=== PATIENT | female | born 1960 | race Caucasian/White ===

== ENCOUNTER 2016-02-28 03:17 | Emergency (ER) | payer BC ==
[~2016-02-28] VITALS: Ht 157.5 cm; Wt 77.2 kg
[~2016-02-28 03:17] MED LIST: ATEN-173 PO; CLX20 PO; FISH1CAP3 PO; NPR/250 PO
[2016-02-28 03:24] VITALS: TEMP 36.9; Ht 157.5 cm; Wt 77.2 kg
[2016-02-28] MEDS ORDERED: FAMOTIDINE IV INJ 20 MG in DEXTROSE 5% 100ML 100 ML IV STA (03:42)
[2016-02-28] MEDS ORDERED: DEXAMETHASONE SOD INJ 10 MG/ML VIAL IV ONE (03:45)
[2016-02-28] MEDS ORDERED: FAMOTIDINE 20MG/102 ML D5W ONE (03:56)
[2016-02-28 04:04] VITALS: O2SAT 98
[2016-02-28] MEDS ORDERED: EPINEPHRINE ADULT AUTO-INJECT 0.3 MG SYR IM ONE (04:30)
[2016-02-28] MEDS ORDERED: LISI-725 PO (04:37)
[2016-02-28] MEDS ORDERED: MELO15TA4 PO (04:38)
--- NOTE | 2016-02-28 04:49 | EMERGENCY ROOM VISIT NOTE ---
History First contact with patient: 03:40 Chief Complaint: ALLERGIC REACTION Stated Complaint: EYES SWOLLEN AND RASH Nursing Triage Summary: Patient got eye brows waxed yesterday at 1030 am. Around 2 pm eyes began to swell, left eye almost swollen shut now. Denies SOB, throat swelling or rash. History of Present Illness The patient is a 56 year old female who presents to the Emergency Room with complaints of orbital swelling after having her eyes waxed today. She is not uses wax before. Patient denies chest pain, dyspnea, throat tightness, tongue swelling, light headedness, dizziness, nausea, vomiting, diarrhea, abdominal pain. She does complain of itchiness. She took Benadryl just prior to arrival. Review of Systems See HPI for pertinent positives & negatives. A total of 10 systems reviewed and were otherwise negative. Past Medical/Surgical History Medical Problems: (1) Arthritis Social History Smoking Status: Never Smoker Drug Use: none Marital Status: single Occupation Status: employed Current/Historical Medications Scheduled Atenolol (Tenormin), 25 MG PO DAILY Lisinopril (Zestril), 20 MG PO DAILY Meloxicam (Mobic), 15 MG PO DAILY Allergies Coded Allergies: Sulfa Drugs (Unverified Allergy, Mild, ?, 09/11/13) Physical Exam Vital Signs Date Time Temp Pulse Resp B/P Pulse Ox O2 Delivery O2 Flow Rate FiO2 02/28/16 04:04 98 Room Air 02/28/16 04:04 98 Room Air 02/28/16 03:26 Room Air 02/28/16 03:24 36.9 79 16 176/76 98 Room Air Physical Exam VITALS: Vitals are noted on the nurse's note and reviewed by myself. Vital signs stable. GENERAL: Pleasant female, in no acute distress, nondiaphoretic, well-developed well-nourished. SKIN: The skin was without rashes, erythema, edema, or bruising. There is no tenting of the skin. Capillary reflex less than 2 seconds. HEAD: Normocephalic atraumatic. Face: Eyebrows and orbits erythematous edematous concerning for acute allergic reaction with no oral pharyngeal edema EARS: External auditory canals clear, tympanic membranes pearly melchor without erythema or effusion bilaterally. EYES: Pupils equal round and reactive to light and accommodation. Conjunctivae without injection, sclerae without icterus. Extraocular movements intact. NOSE: Patent, turbinates without inflammation or discharge. No sinus tenderness. MOUTH: Mucous membranes moist. Pharynx without erythema or exudate. Uvula midline. Airway patent. Tongue does not deviate. NECK: Supple without nuchal rigidity. No lymphadenopathy. No thyromegaly. Cervical spine is nontender. No JVD. HEART: Regular rate and rhythm without murmurs gallops or rubs. LUNGS: Clear to auscultation bilaterally without wheezes, rales or rhonchi. No dullness to percussion. No retractions or accessory muscle use. ABDOMEN: Positive bowel sounds x 4. Normal tympanic percussion. Soft, nontender, without masses or organomegaly. Arroyo sign negative. No guarding or rebound tenderness. MUSCULOSKELETAL: No muscle atrophy, erythema, or edema noted. NEURO: Patient was alert and oriented to person place and time. Normal sensation to light and sharp touch. No focal neurological deficits. Medical Decision & Procedures Medications Administered Medications (Trade) Dose Ordered Sig/Valerie Route Start Time Stop Time Status Last Admin Dose Admin Dexamethasone Sodium Phosphate (Decadron Inj) 10 mg NOW ONCE IV 02/28/16 03:45 02/28/16 03:46 DC 02/28/16 04:07 10 MG Famotidine (Pepcid 20mg/100 ml) 20 mg STK-MED ONCE .ROUTE 02/28/16 03:56 02/28/16 03:58 DC 02/28/16 04:08 20 MG ED Course Prior records/ancillary studies reviewed. Triage Nursing notes reviewed. Additional history obtained from family. The patient's history was concerning for possible allergic reaction. Differential diagnosis: Etiologies such as allergic reaction, anaphylaxis, urticaria, Ray-Kirby syndrome, toxic epidermal necrolysis, erythema multiforme, cellulitis, as well as others were entertained. Physical examination: As above. ER treatment provided: Continuous cardiac monitoring Pepcid 20 mg IV Decadron 10 mg IV On reassessment the patient felt better. Diagnostic interpretation by me: Deferred Patient was advised not to use this wax again in the future. It appears the patient had an allergic reaction. The above treatment did well to reverse the symptoms. After prolonged monitoring and frequent reassessments the patient did very well and symptoms resolved. The patient was counseled on the spectrum of this disease process and told to avoid potential triggers. I gave my usual and customary discussion regarding this issue. By the evaluation outlined above emergent etiologies such as recurring anaphylaxis, anaphylatic shock, airway compromise, Ray-Kirby syndrome, toxic epidermal necrolysis, erythema multiforme, infectious etiologies, as well as others were deemed relatively unlikely. The pt informed about the findings as listed above. All questions were answered and pleased with the treatment. Return instructions were outlined and the patient was discharged in stable condition. Outpatient prescription management: EpiPen prednisone Referral: The patient was referred back to primary care physician for follow-up in 2-3 days for a recheck of the current condition. Medical Decision As above Impression Primary Impression: Allergic reaction Departure Information Dispostion Home / Self-Care Condition GOOD Referrals Tanja Rojas D.O. (PCP) Patient Instructions My [facility] Additional Instructions Do not use this wax again in the future. DO NOT drive, drink alcohol, operate machinery, or perform dangerous activities today. You were given medications in the ER that can affect your ability to safely function or operate a vehicle. Epi-Pen: Use one injection as instructed for severe allergic reactions associated with shortness of breath, difficulty breathing, or throat or tongue swelling. If you use this injection call 911 or proceed immediately to the nearest Emergency Room. Prednisone 50mg: Once daily until the prescription is finished. It is best to take this earlier in the day as some patients note occasional difficulty falling asleep when taken in the late evening. Diphenhydramine(Benadryl) 25mg: use 25 to 50 mg every six hours for swelling, itching, or hives. This medication is sedating and will cause drowsiness. Avoid alcohol, operating machinery or dangerous equipment, working on ladders or roofs, DRIVING, or situations where being under the influence may be dangerous. Zantac 75: Take two pills twice a day along with Benadryl as needed for swelling , itching, or hives. Most people know this for its affect on the stomach, but it also acts similar to, but less potent than Benadryl for allergic reactions. Both the Benadryl and the Zantac are available [id number]. Continue current medications. Return to the emergency department for worsening of your rash, swelling of your face, lips, tongue, or throat, difficulty breathing, vomiting, or as needed. Follow-up with your primary care physician in 2 to 3 days for a recheck of your current condition. Problem Qualifiers Primary Impression: Allergic reaction Encounter type: initial encounter Qualified Codes: T78.40XA - Allergy, unspecified, initial encounter
[2016-02-28 05:00] VITALS: BP 173/100; PULSE 71; O2SAT 98
== END 2016-02-28 05:12 | disposition home or self-care (01) ==
LOC: C.EDB 03:21
DX: T49.8X5A Adverse effect of other topical agents, initial encounter (principal); M19.90 Unspecified osteoarthritis, unspecified site; Z88.2 Allergy status to sulfonamides

== ENCOUNTER → 2017-02-18 | Outpatient (CLI) | payer BC ==
[~2017-02-18] MED LIST changes: -CLX20 PO; -FISH1CAP3 PO; +LISI-725 PO; +MELO15TA4 PO; -NPR/250 PO
--- NOTE | 2017-02-18 15:07 | MAMMOGRAPHY REPORT ---
BILATERAL DIGITAL SCREENING MAMMOGRAM TOMOSYNTHESIS WITH CAD: 02/18/2017 CLINICAL HISTORY: Routine screening. TECHNIQUE: Breast tomosynthesis in addition to standard 2D mammography was performed. Current study was also evaluated with a Computer Aided Detection (CAD) system. COMPARISON: Comparison is made to exam dated: 12/27/2007. BREAST COMPOSITION: There are scattered areas of fibroglandular density in both breasts. FINDINGS: No suspicious masses, calcifications, or areas of architectural distortion are noted in ei ther breast. There has been no significant interval change compared to prior exams. IMPRESSION: ACR BI-RADS CATEGORY 1: NEGATIVE There is no mammographic evidence of malignancy. A 1 year screening mammogram is recommended. The pa tient will receive written notification of the results. Approximately 10% of breast cancers are not detected with mammography. A negative mammographic report should not delay biopsy if a clinically suggestive mass is present. Agatha Phan M.D. ah/:02/18/2017 12:41:55 Lead Systems Developer: Jewell DE DIOS(R)(Mercedes), [facility] letter sent: Normal 1/2 BI-RADS Code: ACR BI-RADS Category 1: Negative
== END | disposition home or self-care (01) ==
LOC: C.MAMM 11:47
PROVIDERS: ATTEND Family Medicine
DX: Z12.31 Encounter for screening mammogram for malignant neoplasm of breast (principal)